=== PATIENT | male | born 1965 | race Caucasian/White ===

== ENCOUNTER 2017-02-22 19:36 | Emergency (ER) | payer BC ==
--- NOTE | 2017-02-22 20:12 | ED ---
Psych HPI - General Chief Complaint: Psychiatric Symptoms Stated Complaint: Mental Health Time Seen by Provider: 02/22/17 19:56 Source: patient, police Mode of arrival: ambulatory - History of Present Illness Initial Comments: 52-year-old male patient presents for psychiatric evaluation after his filed a petition with the Court. Patient states he was brought in by the [employer]. He states that she went to fill out this paperwork after they were having an argument this morning, she was stated to him that she wanted a divorce and he told her that if she him he would "blow his head off". Patient states that he never had any intention of following through with this plan, he states that he said only to get her attention. He states that he does not currently feel suicidal or homicidal. He he denies any feelings of depression, just states that he feels frustrated because he is having marital problems and does not want a divorce. He states that he is treated for what his physician believes his anxiety, states he is having symptoms of some tingling in his hands and some coldness in his ears to the began treating him with clonazepam. He states that the medication did improve his symptoms so they diagnosed with anxiety. He states most recently that the medication doesn't seem be working as well and his doctor recommended he see a psychiatrist for further evaluation and possible recommendation of other medications that could work for this. He denies any hallucinations, panic attacks, or difficulty sleeping. He denies use of alcohol or street drugs. He denies any current physical symptoms or concerns. - Related Data Home Medications Medication Instructions Recorded Confirmed Ascorbic Acid [Vitamin C] 500 mg PO DAILY 02/22/17 02/22/17 Ferrous Sulfate [Feosol] 325 mg PO DAILY 02/22/17 02/22/17 Ibuprofen [Motrin] 800 mg PO QAM 02/22/17 02/22/17 Levothyroxine Sodium [Synthroid] 112 mcg PO DAILY 02/22/17 02/22/17 Losartan [Cozaar] 25 mg PO DAILY 02/22/17 02/22/17 Multivitamins, Thera [Multivitamin 1 tab PO DAILY 02/22/17 02/22/17 (formulary)] clonazePAM [KlonoPIN] 0.5 mg PO HS PRN 02/22/17 02/22/17 clonazePAM [KlonoPIN] 1 mg PO QAM 02/22/17 02/22/17 Allergies Allergy/AdvReac Type Severity Reaction Status Date / Time No Known Allergies Allergy Verified 02/22/17 20:22 Review of Systems ROS Statement: Those systems with pertinent positive or pertinent negative responses have been documented in the HPI. ROS Other: All systems not noted in ROS Statement are negative. Past Medical History Past Medical History: GERD/Reflux, Hypertension, Thyroid Disorder History of Any Multi-Drug Resistant Organisms: None Reported Additional Past Surgical History / Comment(s): finger surgery Past Psychological History: Anxiety, Depression Smoking Status: Never smoker Past Alcohol Use History: None Reported Past Drug Use History: None Reported General Exam Limitations: no limitations General appearance: alert, in no apparent distress, other (Well-developed, well- nourished male in no acute distress. Vital signs upon presentation temperature 98.2F, pulse 69, respirations 20, blood pressure 165/90, pulse ox 97% on room air.) Eye exam: Present: normal appearance, PERRL, EOMI. Absent: scleral icterus, conjunctival injection, periorbital swelling Respiratory exam: Present: normal lung sounds bilaterally. Absent: respiratory distress, wheezes, rales, rhonchi, stridor Cardiovascular Exam: Present: regular rate, normal rhythm, normal heart sounds. Absent: systolic murmur, diastolic murmur, rubs, gallop, clicks Neurological exam: Present: alert, oriented X3, CN II-XII intact Psychiatric exam: Present: normal affect, normal mood Skin exam: Present: warm, dry, intact, normal color. Absent: rash Course Vital Signs 02/22/17 02/22/17 02/22/17 19:44 20:18 22:26 Temperature 98.2 F 98 F Pulse Rate 69 87 Respiratory 20 18 16 Rate Blood Pressure 165/90 169/89 O2 Sat by Pulse 97 96 Oximetry Medical Decision Making - Medical Decision Making 52-year-old male patient presented to escorted by the [facility] for petition his . Patient was cleared medically. He was evaluated by emergency psychiatric services. Psychiatrist and myself felt it was safe to discharge patient home. He was able to contract for safety. He was given outpatient referrals. He is instructed to establish with a counselor or psychiatrist. He is instructed to return here immediately for any new, worsening, or concerning symptoms. Patient verbalizes understanding and agreed with this plan. - Lab Data Lab Results 02/22/17 Range/Units 20:15 Urine Opiates Screen Not Detected (NotDetected) Ur Oxycodone Screen Not Detected (NotDetected) Urine Methadone Screen Not Detected (NotDetected) Ur Propoxyphene Screen Not Detected (NotDetected) Ur Barbiturates Screen Not Detected (NotDetected) U Tricyclic Antidepress Not Detected (NotDetected) Ur Phencyclidine Scrn Not Detected (NotDetected) Ur Amphetamines Screen Not Detected (NotDetected) U Methamphetamines Scrn Not Detected (NotDetected) U Benzodiazepines Scrn Not Detected (NotDetected) Urine Cocaine Screen Not Detected (NotDetected) U Marijuana (THC) Screen Not Detected (NotDetected) Disposition Clinical Impression: History of marital problems, Depression Disposition: HOME SELF-CARE Condition: Good Instructions: Depression (ED), Anxiety (ED) Additional Instructions: Follow-up with your primary care physician for reevaluation. Establish care with a counselor to discuss and work through marital control issues. Return here immediately for any new, worsening, or concerning symptoms. Referrals: Ramone Pagan MD [Primary Care Provider] - 1-2 days Time of Disposition: 21:59
[2017-02-22 22:27] VITALS: BP 169/89; PULSE 87; RESP 16; TEMP 98
== END 2017-02-22 22:26 | disposition home or self-care (01) ==
LOC: EC 19:36
DX: F32.9 Major depressive disorder, single episode, unspecified (principal); Z63.0 Problems in relationship with spouse or partner; E07.9 Disorder of thyroid, unspecified; I10 Essential (primary) hypertension; F41.9 Anxiety disorder, unspecified; Z79.899 Other long term (current) drug therapy
CPT/HCPCS: 80306; 82075; 99284